=== PATIENT | female | born 1965 | race Caucasian/White ===

== ENCOUNTER 2018-04-10 14:12 | Emergency (ER) | payer OTHER ==
[~2018-04-10] VITALS: Ht 172.7 cm; Wt 97.1 kg
[2018-04-10 14:19] VITALS: BP 117/69
--- NOTE | 2018-04-10 14:24 | NUR ---
PT TO BED 10 AT THIS TIME BEING ASSISTED BY FAMILY MEMBER.
--- NOTE | 2018-04-10 14:30 | NUR ---
PT C/O LUMBAR BACK PAIN FOR 1 WEEK S/P "THREW MY BACK OUT WHILE CARRYING GROCERIES UP STAIRS WITH A BAD BACK." PAIN RADIATING DOWN TO LEFT LEG FROM MEDIAL BACK, 10/10 PAIN. -DEFORMITY, -BRUISING, - SWELLING. REPORTS NUMBNESS IN HER CALF. REFLEXES WNL AND CMS INTACT. PT A&O X 4. GCS 15. CMS INTACT. RR EVEN AND UNLABORED. LUNGS BILAT CLEAR. PT DENIES INJURY OR TRAUMA TO THE SITE. REPORTS N/V. DENIES ISSUES WITH URINATION OR DEFACATION. PT HAVING DIFFICULTY WALKING AND SITTING R/T PAIN. ER MD LOPEZ NOTIFIED. PT NEEDS MET. SAFETY PRECAUTIONS IN PLACE. WILL CONTINUE TO MONITOR HX: BULDGING DISK IN L SPINE. ACUTE INTERMITTEN PORPHYRIA. FM. MACROCYTOSIS. HYPOTHYROID. TIA. PANCREATITIS. DIVERTICULOSIS
[2018-04-10] MEDS ORDERED: ONDANSETRON 4 MG ODT PO ONE (15:15)
[2018-04-10] MEDS ORDERED: MORPHINE SULFATE 10 MG/ML SYR IM ONE (15:15)
[2018-04-10] MEDS ORDERED: MORPHINE SULFATE 4 MG/ML SYR ONE (15:27)
[2018-04-10] MEDS ORDERED: MORPHINE SULFATE 4 MG/ML SYR IM ONE (16:25)
[2018-04-10 18:33] VITALS: BP 122/67
--- NOTE | 2018-04-10 18:33 | NUR ---
Patient discharged with v/s stable. Written and verbal after care instructions given and explained. Patient verbalized understanding. Ambulatory with steady gait. All questions addressed prior to discharge. Advised to follow up with PMD.
== END 2018-04-10 18:33 | disposition home or self-care (01) ==
LOC: MED 14:12
DX: M54.42 Lumbago with sciatica, left side (principal); G89.29 Other chronic pain; R11.2 Nausea with vomiting, unspecified; E03.9 Hypothyroidism, unspecified; Z86.73 Personal history of transient ischemic attack (TIA), and cerebral infarction without residual deficits; Z88.8 Allergy status to other drugs, medicaments and biological substances
CPT/HCPCS: 96372; 99284; J2270; S0119